=== PATIENT | female | born 1955 | race Caucasian/White ===

== ENCOUNTER 2021-12-25 21:05 | Inpatient (IN) | payer MEDICARE, BC ==
[~2021-12-25] VITALS: Ht 165.1 cm; Wt 88.0 kg
--- NOTE | ~2021-12-25 | PROC ---
[facility] [address] [place] [address] PROCEDURE REPORT Name: CLOVER OAKES Room: [address]R.#: [id number] Admission: 12/25/21 Attend Phys: Sheng Hernández Discharge: 12/31/21 Date of : 51 Report #: [id number] THIS REPORT FOR: cc: FAM - No family physician/PCP FAM - No family physician/PCP [facility],Medical Records Staff ~ For Gi report, please see the Provation report in Perceptive 7 content. By: 0851Medical Records Staff [facility] /LUIS ALFREDO
--- NOTE | ~2021-12-25 | CON ---
[address] [address] CONSULTATION Name: WALLYLAKESHIACLOVER Rakan Room: [address] IN M.R.#: [id number] Admission: 12/25/21 Attend Phys: Sheng Hernández Discharge: Date of : 51 Report #: [id number] THIS REPORT FOR: cc: LATIA - No family physician/PCP LATIA - No family physician/PCP Nola Hernandez MD ~ cc: Kassandra Lopez MD DATE OF CONSULTATION: 12/29/2021 Please note at the time of this dictation, the patient was seen and physically examined by myself. REASON FOR CONSULTATION: Anemia and hematochezia. HISTORY OF PRESENT ILLNESS: This is a 66-year-old female who presented to the Emergency Room after EMS was called after she had a near syncopal episode at her home. The patient states she became very lightheaded and weak in her knees, on that day felt very hot and as she was getting ready to go to the bathroom, she blacked out and her daughter helped her get to the floor. The patient denied hitting her head or anything else and came to very quickly. She denies any recent illnesses. She denied any nausea, vomiting, abdominal pain or any blood in her stool at that time. The patient does have a significant history of Hamzah-en-Y back in 2002 which she states she has not had any issues with; however, she does take turmeric and chelsea root and aspirin on a regular basis and does avoid any ibuprofen. The patient states that she did not have any stools until after she got here and she did have a stool in the toilet that was black to bright red blood. They showed me a picture. She has not had another bowel movement since that time. She denies any issues with acid reflux or taking any medicine for this or any difficulty in swallowing. She states she did not have any abdominal discomfort; however, on physical examination she does have a little bit of epigastric discomfort noted. The patient did have a colonoscopy she thinks at least 5 years ago plus with Dr. Noel at [facility]. We will request those records. ALLERGIES: No known drug allergies. MEDICATIONS FROM HOME: Enteric aspirin, atorvastatin, Celexa, vitamin E, PreserVision, B12, vitamin D, CoQ10, turmeric, ____, chelsea gummy, iron, echinacea, magnesium, ____, tramadol, acyclovir, ____ and Biotene. PAST MEDICAL HISTORY: Significant for some depression, hyperlipidemia and history of Hamzah-en-Y bypass. PAST SURGICAL HISTORY: Cholecystectomy [place] [address] CONSULTATION Name: CLOVER OAKES Room: [address] IN .R.#: [id number] Admission: 12/25/21 Attend Phys: Sheng Hernández Discharge: Date of : 51 Report #: [id number] FAMILY HISTORY: Significant for inflammatory bowel disease. Sister with UC, daughter with Crohn's and a brother with Crohn's disease. SOCIAL HISTORY: She denies any alcohol, tobacco or illegal drug use. REVIEW OF SYSTEMS: Twelve-point review of systems is essentially negative except what is mentioned in the HPI. PHYSICAL EXAMINATION: VITAL SIGNS: Temperature 37.2, pulse 67, respirations are 20, blood pressure 136/69. HEART: Regular rate and rhythm. LUNGS: Diminished, but clear. ABDOMEN: Soft, positive bowel sounds in all 4 quadrants with some slight tenderness in the epigastric area. LABORATORY DATA: Hemoglobin was 7.6, on admission she is 8.1, white count is 5.3 and platelets 179, GFR is 71, BUN is 15, creatinine 0.8. Iron is 50, TIBC 195. Percentage sat is 26. IMPRESSION: 1. Hematochezia. 2. Epigastric pain. 3. Anemia, chronic with history of Hamzah-en-Y in the past. 4. Syncopal episode. 5. Family history of inflammatory bowel disease. Sister ulcerative colitis, niece and brother Crohn's. PLAN: 1. EGD today with Dr. Hernandez. 2. Obtain records from [facility], Dr. Noel, regarding her last colonoscopy with pathology. 3. We will check B12 and folate. 4. Further recommendations to be made after the procedure has been performed. Thank you for allowing us to participate in this patient's care. Please do not hesitate to call with any questions regarding this consult. By: [id number] Brandy Hernandez MD /nt
[2021-12-25 21:06] VITALS: BP 116/67
[2021-12-25 21:46] LABS: ABSOLUTE BASOPHILS 0.1 thou/uL (0.0-0.2); ABSOLUTE EOSINOPHILS 0.1 thou/uL (0.0-0.7); ABSOLUTE LYMPHOCYTES 2.4 thou/uL (0.8-5.3); ABSOLUTE MONOCYTES 0.6 thou/uL (0.0-1.2); ABSOLUTE NEUTROPHILS 6.7 thou/uL (1.6-8.1); BASOPHILS 0.6 %; EOSINOPHILS 0.7 %; HEMATOCRIT 26.2 % (37.0-47.0); HEMOGLOBIN 8.5 gm/dL (12.0-15.0); LYMPHOCYTES 24.7 %; MCH 28.8 pg (26.0-34.0); MCHC 32.6 g/dL (28.0-37.0); MCV 88.4 fL (80.0-100.0); MONOCYTES 6.4 %; MPV 8.6 fl. (7.2-11.1); NUCLEATED RBCS 0 /100WBC; PLATELET COUNT* 176 thou/uL (150-400); POLYS 67.6 %; RBC 2.96 mil/uL (4.20-5.00); RDW-CV 13.5 % (10.5-14.5); WBC 9.9 thou/uL (4.0-11.0)
[2021-12-25 22:02] LABS: ALBUMIN 2.5 g/dL (3.4-5.0); CALCIUM 6.4 mg/dL (8.5-10.1); CREATININE 0.7 mg/dL (0.6-1.3); MAGNESIUM 1.8 mg/dL (1.8-2.4); POTASSIUM 3.3 mmol/L (3.5-5.1); TOTAL BILIRUBIN 0.2 mg/dL (<0.1-1.0); TOTAL PROTEIN 4.7 g/dL (6.4-8.2)
[2021-12-25] MEDS ORDERED: ASA81BEC PO (22:44)
[2021-12-25] MEDS ORDERED: ATORVASTATIN CA20 MG PO (22:45)
[2021-12-25] MEDS ORDERED: CELEXA 20 MG TA20 MG PO (22:45)
[2021-12-25] MEDS ORDERED: PRESERVISION A1 EAC2 PO (22:46)
[2021-12-25] MEDS ORDERED: VITAMIN E1000 UNIT PO (22:46)
[2021-12-25] MEDS ORDERED: COQ-10100 MG PO (22:47)
[2021-12-25] MEDS ORDERED: VITAMIN D310 MC2 PO (22:47)
[2021-12-25] MEDS ORDERED: B-125000 MC1 PO (22:47)
[2021-12-25] MEDS ORDERED: IRON18 M1 PO (22:48)
[2021-12-25] MEDS ORDERED: TURMERIC CURCU1 EACH PO (22:48)
[2021-12-25] MEDS ORDERED: ECHINACEA400 MG PO (22:49)
[2021-12-25] MEDS ORDERED: MAGNESIUM250 M1 PO (22:49)
[2021-12-25] MEDS ORDERED: [UNRECOGNIZED DRUG - CODE] PO (22:50)
[2021-12-25] MEDS ORDERED: TRAMADOL 50 MG50 MG PO (22:51)
[2021-12-25] MEDS ORDERED: ZOVIRAX30 GM (22:51)
[2021-12-25] MEDS ORDERED: ULTRAM50 MG PO (22:51)
[2021-12-25] MEDS ORDERED: BIOTIN1 MG (22:52)
[2021-12-25] MEDS ORDERED: FLEXERIL PO (22:52)
[2021-12-25 23:33] LABS: % SATURATION 26 % (20-39); IRON 50 ug/dL (50-175)
[2021-12-26 02:00] VITALS: BP 119/69
[2021-12-26 02:07] VITALS: BP 139/77
[2021-12-26] MEDS ORDERED: VITAMIN B-121000 MC2 PO (03:22)
[2021-12-26] MEDS ORDERED: VITAMIN D350 MC3 PO (03:24)
[2021-12-26] MEDS ORDERED: MAGNESIUM400 MG PO (03:29)
[2021-12-26 04:15] VITALS: BP 118/65
--- NOTE | 2021-12-26 06:57 | NUR ---
Admit at 0150. She has been having vertigo and syncope. She will be up with stand by assist to the bathroom. She has IVF's going. Since arrival to floor she hasn't had syncopal episode. Vitals are stable. NSR on the monitor.
[2021-12-26 08:00] VITALS: BP 107/63
--- NOTE | 2021-12-26 11:25 | EKG ---
[place] [address] ELECTROCARDIOGRAM REPORT Name: CLOVER OAKES Rakan Room: [address]R.#: [id number] Admission: 12/25/21 Attend Phys: Felton Fuller Discharge: Date of : 51 Date of Service: 12/25/212109 Report #: [id number] THIS REPORT FOR: //name// [facility] ED Test Date: 2021-12-25 Test Time: 21:10:48 Pat Name: CLOVER OAKES Department: Room: [facility] Gender: F Class A [employer] Drivers: : 1955 Requested By: Jacque Reyes Order Number: [id number] MD: Curtis Verdugo Measurements Intervals [place] Rate: 60 P: 72 VA: 186 QRS: 50 QRSD: 84 T: 61 QT: 428 QTc: 428 Interpretive Statements Sinus rhythm Low voltage, precordial leads Abnormal R-wave progression, early transition No previous ECG available for comparison Electronically Signed On 12-26-2021 11:25:19 PODOPEDIATRICIAN by Curtis Verdugo [email or web address] <ELECTRONICALLY SIGNED> By: Curtis Verdugo MD, [facility] 12/26/21 1125 09 09 Curtis Verdugo MD, [facility] /EPI
--- NOTE | 2021-12-26 15:58 | NUR ---
CM ASSESSMENT: PT A&O, AND INDEPENDENT WITH ADL'S. PT RESIDES AT HOME ALONE. PT USES 0 DME. PT HAS PAST HX OF HH 'MANY YEARS AGO'. PT HAS 0 HX OF SNF. NO CM D/C PLANNING NEEDS ANTICIPATED AT THIS TIME. CM WILL REMAIN AVAILABLE TO ASSIST AND FOLLOW NEEDED.
[2021-12-26 16:00] VITALS: BP 108/67
[2021-12-26 18:46] LABS: ABSOLUTE BASOPHILS 0.1 thou/uL (0.0-0.2); ABSOLUTE EOSINOPHILS 0.1 thou/uL (0.0-0.7); ABSOLUTE LYMPHOCYTES 1.6 thou/uL (0.8-5.3); ABSOLUTE MONOCYTES 0.7 thou/uL (0.0-1.2); ABSOLUTE NEUTROPHILS 5.3 thou/uL (1.6-8.1); BASOPHILS 0.8 %; EOSINOPHILS 1.2 %; HEMATOCRIT 25.9 % (37.0-47.0); HEMOGLOBIN 8.4 gm/dL (12.0-15.0); LYMPHOCYTES 20.7 %; MCH 28.7 pg (26.0-34.0); MCHC 32.5 g/dL (28.0-37.0); MCV 88.4 fL (80.0-100.0); MONOCYTES 8.7 %; MPV 8.3 fl. (7.2-11.1); NUCLEATED RBCS 0 /100WBC; PLATELET COUNT* 170 thou/uL (150-400); POLYS 68.6 %; RBC 2.93 mil/uL (4.20-5.00); RDW-CV 14.2 % (10.5-14.5); WBC 7.8 thou/uL (4.0-11.0)
[2021-12-26 20:00] VITALS: BP 123/82
[2021-12-26 22:51] LABS: URINE BILIRUBIN NEGATIVE (Negative); URINE BLOOD NEGATIVE (Negative); URINE CLARITY CLEAR; URINE COLOR YELLOW; URINE GLUCOSE-RANDOM NEGATIVE (Negative); URINE KETONES NEGATIVE (Negative); URINE LEUKOCYTES-REFLEX NEGATIVE (Negative); URINE NITRITE-REFLEX NEGATIVE (Negative); URINE PROTEIN NEGATIVE (Negative); URINE UROBILINOGEN 0.2 E.U./dl (0.2-1.0)
[2021-12-27 01:21] VITALS: BP 112/71
[2021-12-27 05:44] VITALS: BP 103/64
[2021-12-27 08:48] VITALS: BP 111/66
[2021-12-27 12:00] VITALS: BP 101/67
[2021-12-27 16:00] VITALS: BP 126/70
[2021-12-27 20:24] VITALS: BP 113/71
[2021-12-28] VITALS (7 sets, daily range): BP systolic 117–136; BP diastolic 57–77
--- NOTE | 2021-12-28 05:46 | NUR ---
PT IS ABLE TO COMMUNICATE HER NEEDS TO STAFF EFFECTIVELY. SHE HAS DENIED THE NEED FOR PAIN MEDICATION UP TO THIS TIME. MOST RECENT OCCULT BLOOD STOOL TESTING WAS POSITIVE; GI CONSULTED; PT HAS BEEN NPO SINCE MIDNIGHT. POSSIBLE DISCHARGE SOON.
[2021-12-28 11:33] LABS: ABSOLUTE EOSINOPHILS 0.2 thou/uL (0.0-0.7); ABSOLUTE LYMPHOCYTES 1.1 thou/uL (0.8-5.3); ABSOLUTE MONOCYTES 0.5 thou/uL (0.0-1.2); ABSOLUTE NEUTROPHILS 1.6 thou/uL (1.6-8.1); BASOPHILS 1.3 %; EOSINOPHILS 4.7 %; HEMATOCRIT 23.1 % (37.0-47.0); HEMOGLOBIN 7.6 gm/dL (12.0-15.0); LYMPHOCYTES 32.9 %; MCH 28.6 pg (26.0-34.0); MCHC 32.9 g/dL (28.0-37.0); MCV 87.1 fL (80.0-100.0); MONOCYTES 13.3 %; MPV 7.9 fl. (7.2-11.1); NUCLEATED RBCS 0 /100WBC; PLATELET COUNT* 153 thou/uL (150-400); POLYS 47.8 %; RBC 2.66 mil/uL (4.20-5.00); RDW-CV 13.9 % (10.5-14.5); WBC 3.4 thou/uL (4.0-11.0)
[2021-12-28 11:47] LABS: ALBUMIN 2.9 g/dL (3.4-5.0); CALCIUM 7.6 mg/dL (8.5-10.1); CREATININE 0.7 mg/dL (0.6-1.3); MAGNESIUM 2.2 mg/dL (1.8-2.4); PHOSPHORUS* 4.4 mg/dL (2.5-4.9); POTASSIUM 3.9 mmol/L (3.5-5.1); TOTAL BILIRUBIN 0.2 mg/dL (<0.1-1.0); TOTAL PROTEIN 5.4 g/dL (6.4-8.2)
--- NOTE | 2021-12-28 18:57 | NUR ---
RECEIVED REPORT. ASSUMED CARE OF PT AROUND 0730. AM ASSESSMENT AND VITALS COMPLETED CHARTED. PT TO SEE GI TOMORROW - NPO AFTER MIDNIGHT. GI PLANNING FOR POSSIBLE SCOPE TOMORROW. NO ACTIVE BLEEDING THIS SHIFT. SON AT BEDSIDE MOST OF SHIFT. CALL [facility] WITHIN REACH. HOURLY ROUNDING.
[2021-12-29 00:02] VITALS: BP 133/68
[2021-12-29 04:00] VITALS: BP 119/71
[2021-12-29 05:19] LABS: HEMATOCRIT 24.1 % (37.0-47.0); HEMOGLOBIN 8.1 gm/dL (12.0-15.0); MCH 28.9 pg (26.0-34.0); MCHC 33.5 g/dL (28.0-37.0); MCV 86.4 fL (80.0-100.0); MPV 8.6 fl. (7.2-11.1); RBC 2.79 mil/uL (4.20-5.00); RDW-CV 13.8 % (10.5-14.5); WBC 5.3 thou/uL (4.0-11.0)
[2021-12-29 05:32] LABS: CALCIUM 7.8 mg/dL (8.5-10.1); CREATININE 0.8 mg/dL (0.6-1.3); POTASSIUM 3.4 mmol/L (3.5-5.1)
[2021-12-29 09:18] VITALS: BP 136/69
[2021-12-29 11:50] VITALS: BP 132/70
--- NOTE | 2021-12-29 17:08 | NUR ---
PLAN OF CARE: PLAN FOR THE PT TO D/C HOME WITH HH WHEN MEDICALLY STABLE AT D/C IF PT ACCEPTS. CM WILL REMAIN AVAILABLE TO ASSIST AND FOLLOW NEEDED.
[2021-12-29 17:35] VITALS: BP 142/73
[2021-12-29 18:26] LABS: % SATURATION 11 % (20-39); IRON 29 ug/dL (50-175)
[2021-12-29 20:01] VITALS: BP 123/67
[2021-12-30 00:36] VITALS: BP 115/63
[2021-12-30 04:17] VITALS: BP 125/60
[2021-12-30 07:52] VITALS: BP 118/71
--- NOTE | 2021-12-30 09:50 | NUR ---
PLAN OF CARE: PLAN FOR THE PT TO D/C HOME WITH SELF-CARE WHEN MEDICALLY STABLE. PT MAY BENEFIT FROM HH AT D/C. CM WILL REMAIN AVAILABLE TO ASSIST AND FOLLOW NEEDED.
[2021-12-30 12:05] VITALS: BP 122/69
[2021-12-30 16:54] VITALS: BP 109/63
[2021-12-30 20:30] VITALS: BP 131/74
[2021-12-31 00:54] VITALS: BP 98/60
[2021-12-31 04:00] VITALS: BP 122/66
[2021-12-31 05:11] LABS: HEMATOCRIT 23.6 % (37.0-47.0); HEMOGLOBIN 7.9 gm/dL (12.0-15.0)
[2021-12-31 05:16] LABS: CALCIUM 7.7 mg/dL (8.5-10.1); CREATININE 0.8 mg/dL (0.6-1.3)
--- NOTE | 2021-12-31 05:39 | NUR ---
PT SITTING IN CHAIR AT TIME OF ASSESSMENT, LUNGS DIMINISHED ON LT CLEAR ON RT, DENIES COUGH AND PAIN. UP WITH WALKER TO TOILET. FLUIDS INFUSING PER ORDER, PT MAKES NEEDS KNOWN WITH HOURLY ROUNDING. SPOKE WITH PT SON BY PHONE FOR UPDATE ON HER CONDITION. PLAN FOR DISCHARGE TODAY IF OK WITH GI
[2021-12-31 08:00] VITALS: BP 114/63
--- NOTE | 2021-12-31 11:32 | NUR ---
CM FAXED REFERRAL TO [facility] [phone].
[2021-12-31] MEDS ORDERED: MIDODRINE HCL 55 M1 PO (12:36)
[2021-12-31] MEDS ORDERED: PROTONIX40 M2 PO (12:38)
[2021-12-31] MEDS ORDERED: CARAFATE 1 GM TA1 G1 PO (12:42)
[2021-12-31 13:13] VITALS: BP 114/63
[2021-12-31 13:21] VITALS: BP 114/63
--- NOTE | 2021-12-31 14:13 | NUR ---
ORDERS NOTED FOR OKAY FOR PT TO D/C TO HOME WITH HH THIS SHIFT PER AND GI- CM HERE TO ARRANGE AND SET UP HH- IV TO LEFT WRIST D/C'D ALONG WITH RELAY TELEGRAPHER PRIOR OT D/C- D/C EDUCATION/TEACHING/NEEDED FOLLOW UP'S COMMUNICATED TO PT AND SON AT TIME OF D/C WITH VERBAL UNDERSTANDING NOTED- WRITTEN EDUCATION PROVIDED TO PT AND SON AT TIME OF D/C WITH ALL QUESTIONS AND CONCERNS ADDRESSED PRIOR TO D/C- BELONGINGS PACKED AND ACCOUNTED FOR PER PT AND SON- PT ESCORTED PER TECH VIA W/C WITH BELONGINGS; SON AT SIDE TO VEHICLE FOR D/C AT 1415- NO PROBLEMS TO NOTE AT TIME OF D/C
[2021-12-31 14:16] VITALS: BP 114/63
--- NOTE | 2022-01-01 17:07 | PATH ---
[address] [address] PATHOLOGY RPT PROCEDURE Name: FALLON ALBRIGHT Room: [address] IN M.R.#: [id number] Admission: 12/25/21 Date of : 51 Discharge: 12/31/21 Report #: [id number] Path Case #: [id number] [facility] Accession Number: [id number] . 01 Material submitted: . jejunum - BIOPSY OF ANASTOMOTIC ULCER AT JEJUNUM SITE . 01 Clinical history: . EGD IN OR . 02 Diagnosis: Anastomotic ulcer of jejunum site: - Benign small intestinal mucosa with moderate nonspecific active inflammation and erosion, negative for granulomas, viral inclusions and dysplasia/adenomatous change. (EMELI:diane; 12/31/2021) QMS 12/31/2021 1155 Local . 02 Electronically signed: . Roberto Calvillo MD, Pathologist NPI- [id number] . 01 Gross description: . The specimen is received in formalin, labeled "Fallon Albright, anastomotic ulcer of jejunum site". Received are 2 segments of pale alamo tissue measuring 0.3 and 0.4 cm in maximum dimensions. The specimen is entirely submitted in cassette A1. ([facility]; 12/30/2021) NRI/NRI 12/30/2021 1517 Local . 02 Pathologist provided ICD-10: K28.9, K52.9 . 02 CPT . 225137 Specimen Comment: A courtesy copy of this report has been sent to [phone] Specimen Comment: [id number] Specimen Comment: Report sent to / DR TUCKER Specimen Comment: A duplicate report has been generated due to demographic updates. Performed at: [address] [id number] MD Ervin Razo MD Phone: [phone] Performed at: [address] [id number] [address] [address] PATHOLOGY RPT PROCEDURE Name: FALLON ALBRIGHT Room: [address] IN M.R.#: [id number] Admission: 12/25/21 Date of : 51 Discharge: 12/31/21 Report #: [id number] Path Case #: [id number] MD Roberto Calvillo MD Phone: [phone]
== END 2021-12-31 14:15 | disposition home health service (06) | DRG 378 ==
LOC: M.ERS 21:05 → M.TBA-ER 23:40 → M.2W 23:40
PROVIDERS: Emergency Medicine; Internal Medicine; Internal Medicine Gastroenterology; ADMIT Internal Medicine; ATTEND Internal Medicine
PROC: 0DBA8ZX Excision of Jejunum, Via Natural or Artificial Opening Endoscopic, Diagnostic (ICD-10-PCS; principal; 2021-12-29)
DX: K92.2 Gastrointestinal hemorrhage, unspecified (principal); E44.0 Moderate protein-calorie malnutrition; Z20.822 Contact with and (suspected) exposure to COVID-19; Z68.32 Body mass index [BMI] 32.0-32.9, adult; K44.9 Diaphragmatic hernia without obstruction or gangrene; Z90.49 Acquired absence of other specified parts of digestive tract; Z98.51 Tubal ligation status; D64.9 Anemia, unspecified; I95.1 Orthostatic hypotension; F32.A Depression, unspecified; E87.6 Hypokalemia; E78.5 Hyperlipidemia, unspecified; E83.51 Hypocalcemia